=== PATIENT | male | born 1950 | race Caucasian/White ===

== ENCOUNTER → 2016-10-16 | Outpatient (CLI) | payer BC ==
[2016-10-16 14:34] LABS: BASOPHILS # (AUTO) 0.05 10*3/UL; BASOPHILS % (AUTO) 0.8 % (0-1); EOSINOPHILS % (AUTO) 3.8 % (0-8); HEMATOCRIT 46.5 % (42.0-52.0); HEMOGLOBIN 15.4 g/dL (14.0-18.0); IMM GRAN % (AUTO) 0.5 % (0-5); IMM GRAN# (AUTO) 0.03 10*3/UL; LYMPHOCYTES # (AUTO) 2.01 10*3/uL; LYMPHOCYTES % (AUTO) 30.9 % (10-50); MEAN CORPUSCULAR HEMOGLOBIN 29.1 PG (27-31); MEAN CORPUSCULAR HGB CONC 33.1 g/dL (33-37); MEAN PLATELET VOLUME 9.5 FL (7.4-12.2); MONOCYTES # (AUTO) 0.89 10*3/UL (0.3-0.8); MONOCYTES % (AUTO) 13.7 % (5-15); NEUTROPHILS # (AUTO) 3.27 10*3/UL; NEUTROPHILS % (AUTO) 50.3 % (50-80)
[2016-10-16 14:36] LABS: PLATELET MORPHOLOGY COMMENT NORMAL MORPHOLOGY (NORM)
[2016-10-16 14:41] LABS: ASPARTATE AMINO TRANSFERASE 21 IU/L (21-57); BILIRUBIN,TOTAL 0.8 mg/dL (0.3-1.2); BLOOD UREA NITROGEN 19 mg/dL (7-22); BUN/CREATININE RATIO 23.75 (6-20); CALCIUM 8.9 mg/dL (8.7-10.7); CHLORIDE 105 meq/L (98-112); CREATININE 0.8 mg/dL (0.70-1.50); EST GLOMERULAR FILTRATION > 60 (>60 ml/min/1.73m(2)); GLUCOSE 96 mg/dL (78-110); HDL CHOLESTEROL 40 mg/dL (40-150); POTASSIUM 4.6 meq/L (3.8-5.2); SODIUM 141 meq/L (135-145); TOTAL PROTEIN 6.6 g/dL (6.1-8.0); TRIGLYCERIDES 109 mg/dL (44-200)
[2016-10-18 10:05] LABS: PSAFREE 1.7 ng/mL (()); PSATOTAL 6.8 ng/mL (<=4.5)
== END ==
LOC: LAB 08:34
PROVIDERS: ATTEND Internal Medicine
DX: E05.90 Thyrotoxicosis, unspecified without thyrotoxic crisis or storm (principal); G47.00 Insomnia, unspecified; R35.0 Frequency of micturition; R35.1 Nocturia; N52.9 Male erectile dysfunction, unspecified; Z80.0 Family history of malignant neoplasm of digestive organs; Z87.438 Personal history of other diseases of male genital organs
CPT/HCPCS: 80053; 80061; 84153; 84154; 84443; 85025